=== PATIENT | male | born 1990 | race African-American/Black ===

== ENCOUNTER 2017-06-07 08:08 | Emergency (ER) | payer SELFPAY ==
[~2017-06-07] VITALS: Ht 177.8 cm; Wt 118.0 kg
[~2017-06-07 08:08] MED LIST: ACYC1CAP16 PO; CEPH500C3 PO
[2017-06-07 08:10] VITALS: BP 130/65; PULSE 86; RESP 20; TEMP 98.7; O2SAT 99
--- NOTE | 2017-06-07 08:28 | PD ---
HPI Chief Complaint: Headache Time Seen by Provider: 08:22 Travel History International Travel<30 days: No Contact w/Intl Traveler<30days: No Traveled to known affect area: No History of Present Illness HPI 26-year-old male presents to the emergency department for evaluation of frontal headache that began last night. Patient states that this was a gradual onset headache, denies sudden onset or thunderclap headache. States it is a throbbing pain across his forehead. States that he does have some photophobia as well. States he took 1000 mg of Tylenol last night and again this morning about an hour ago. States that the Tylenol does help his headache however has not completely resolved the headache. He denies any lightheadedness, dizziness , blurred vision, weakness, numbness or tingling, nausea, vomiting, fever, chills, cough or cold symptoms. States that he has never had headaches prior to today which is why he has presented to the emergency department. Denies a known family history of migraine headaches however states his mother at a young age and he is unsure if she had them. Denies any head trauma. 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 No other complaints. PFSH Past Medical History Medical History: Denies Significant Hx Diminished Hearing: No Social History Alcohol Use: Yes (1 BEER A WEEK) Tobacco Use: No Substance Use: No Allergies-Medications (Allergen,Severity, Reaction): Coded Allergies: No Known Allergies (Unverified , 06/07/17) Reported Meds & Prescriptions Reported Meds & Active Scripts Active Review of Systems Except as stated in HPI: all other systems reviewed are Neg Physical Exam Narrative GENERAL: Well-nourished and well-developed pleasant male patient in no acute distress who is nontoxic appearing. SKIN: Warm and dry. HEAD: Normocephalic and atraumatic. EYES: No injection, drainage, or hyphema noted. PERRLA. EOMI. ENT: No nasal drainage noted. Oropharynx is clear and the TMs are normal with good landmarks. NECK: Supple and the trachea is midline. CARDIOVASCULAR: Regular rate and rhythm. RESPIRATORY: Breath sounds are equal bilaterally with no accessory muscle use, wheezing, rhonchi, or crackles. MUSCULOSKELETAL: No obvious deformities, swelling, cyanosis, or ecchymosis is present throughout the upper and lower extremities. Patient has full range of motion without any signs of neurovascular compromise. Strength 5/5 upper and lower extremities equal bilaterally. NEUROLOGICAL: Awake, alert, and oriented. Normal speech and gait. Cranial nerves are grossly intact. Data Data Last Documented VS Vital Signs Date Time Temp Pulse Resp B/P Pulse Ox O2 Delivery O2 Flow Rate FiO2 06/07/17 08:10 98.7 86 20 130/[address] Brain W/O Iv Contrast(Rout) (06/07/17 08:22) Ibuprofen (Motrin) (06/07/17 09:30) MDM Medical Decision Making Medical Screen Exam Complete: Yes Emergency Medical Condition: Yes Differential Diagnosis Migraine headache versus tension headache versus dehydration Narrative Course 26-year-old male presents to the emergency department for evaluation of throbbing frontal headache with photophobia that began last night. Patient is afebrile, vital signs are stable. No focal neurologic deficits. Headache is relieved with Tylenol. Patient has no history of headaches therefore we will order a head CT to rule out any acute intracranial abnormality. I have no clinical suspicion for subarachnoid hemorrhage. Head CT is negative for any acute abnormalities. Patient is administered ibuprofen 800 mg orally here in the ED. Discussed results of CT scan with the patient. Discussed supportive care. Advised to follow-up as an outpatient with his PCP if symptoms persist. Patient verbalizes understanding and agreement with treatment plan. Diagnosis Primary Impression: Headache Qualified Code: R51 - Acute nonintractable headache, unspecified headache type Referrals: Primary Care Physician Patient Instructions: Acute Headache (ED), General Instructions Additional Instructions: Take medication as prescribed with food and a full glass of water. Follow-up with your Primary Care Physician. Return to the ED for any acute worsening of symptoms. Med/Other Pt SpecificInfo: No Change to Meds Disposition: 01 DISCHARGE HOME Condition: Stable Sherie Peterson Jun 07, 2017 08:28
--- NOTE | 2017-06-07 09:19 | RADRPT ---
EXAM DATE/TIME: 06/07/2017 08:43 [facility] COMPARISON: No previous studies available for comparison. INDICATIONS : Headache for one day, no known trauma. RADIATION DOSE: 44.22 CTDIvol (mGy) MEDICAL HISTORY : None SURGICAL HISTORY : None. ENCOUNTER: Initial ACUITY: 1 day PAIN SCALE: 7/10 LOCATION: Bilateral cranial TECHNIQUE: Multiple contiguous axial images were obtained of the head. Using automated exposure control and adj ustment of the mA and/or kV according to patient size, radiation dose was kept as low as reasonably a chievable to obtain optimal diagnostic quality images. DICOM format image data is available electro nically for review and comparison. FINDINGS: CEREBRUM: The ventricles are normal for age. No evidence of midline shift, mass lesion, hemorrhage or acute in farction. No extra-axial fluid collections are seen. POSTERIOR FOSSA: The cerebellum and brainstem are intact. The 4th ventricle is midline. The cerebellopontine angle i s unremarkable. EXTRACRANIAL: The visualized portion of the orbits is intact. SKULL: The calvaria is intact. No evidence of skull fracture. CONCLUSION: Normal examination for a patient of this age. Stan Owusu MD on June 07, 2017 at 9:17 Board Certified Radiologist. This report was verified electronically.
[2017-06-07] MEDS ORDERED: IBUP800T23 PO (09:23)
[2017-06-07] MEDS ORDERED: IBUPROFEN 800 MG TAB PO ONE (09:30)
== END 2017-06-07 09:34 | disposition home or self-care (01) ==
LOC: NEPK 08:08
DX: R51 Headache (principal); H53.149 Visual discomfort, unspecified
CPT/HCPCS: 70450